=== PATIENT | male | born 1960 | race Caucasian/White ===

== ENCOUNTER 2019-12-17 05:52 | Day surgery (SDC) | payer OTHER, SELFPAY ==
[~2019-12-17] VITALS: Ht 167.6 cm; Wt 88.5 kg
[2019-12-17] MEDS ORDERED: ceFAZolin 1,000 MG VIAL ONE (07:44)
[2019-12-17] MEDS ORDERED: BUPIVACAINE-MPF/EPI 0.25% 30 ML VIAL INJ ONE (07:45)
[2019-12-17] MEDS ORDERED: BLOOD GLUCOSE MONITORING 1 DEV DEV FS SCH (07:55)
[2019-12-17] MEDS ORDERED: ONDANSETRON 4 MG/2 ML VIAL IVP PRN (07:55)
[2019-12-17] MEDS ORDERED: LACTATED RINGERS 1,000 ML IV SCH (07:55)
[2019-12-17] MEDS ORDERED: HYDROmorphone 1 MG/ML AMP IVP PRN ×2 (07:55→09:05)
[2019-12-17] MEDS ORDERED: SUCCINYLCHOLINE CHLORIDE 200 MG/10 ML VIAL IVP ONE (08:03)
[2019-12-17] MEDS ORDERED: PROPOFOL 200 MG/20 ML VIAL IV ONE (08:03)
[2019-12-17] MEDS ORDERED: ROCURONIUM 50 MG/5 ML VIAL IV ONE (08:03)
[2019-12-17] MEDS ORDERED: GLYCOPYRROLATE 0.2 MG/ML VIAL ONE (08:03)
[2019-12-17] MEDS ORDERED: NEOSTIGMINE 1:1000 10 MG/10 ML VIAL ONE (08:03)
[2019-12-17] MEDS ORDERED: DESFLURANE 240 ML BTL INH ONE (08:03)
[2019-12-17] MEDS ORDERED: ACETAMINOPHEN 325 MG TAB PO PRN (09:05)
[2019-12-17] MEDS ORDERED: ONDANSETRON 4 MG/2 ML VIAL IV PRN (09:05)
[2019-12-17] MEDS ORDERED: MORPHINE SULFATE 4 MG/ML SYR IV PRN (09:05)
[2019-12-17] MEDS ORDERED: MORPHINE SULFATE 2 MG/ML SYR IVP PRN (09:05)
[2019-12-17] MEDS ORDERED: HYDROcodone/APAP 5/325 MG 1 TAB TAB PO PRN (09:05)
[2019-12-17] MEDS: HYDROmorphone PFS 2 MG/ML SYR ONE ×2 (09:30→09:45)
[2019-12-17] MEDS ORDERED: INSULIN LISPRO SLIDING SCALE 100 UNITS/ML VIAL SUBQ PRN (09:40)
== END 2019-12-17 12:00 | disposition home or self-care (01) ==
LOC: MDS 05:52 → MMU 05:58 → MDS 12:00
PROVIDERS: ATTEND Surgery
DX: K42.9 Umbilical hernia without obstruction or gangrene (principal); E10.9 Type 1 diabetes mellitus without complications; Z79.4 Long term (current) use of insulin; Z98.890 Other specified postprocedural states; F17.200 Nicotine dependence, unspecified, uncomplicated
CPT/HCPCS: 36415; 49585; 71045; C1781; J0690; J1170; J3490; J7030; J7060; Q0092; J0330; J2704; J2710

== ENCOUNTER 2020-06-14 11:15 | Emergency (ER) | payer OTHER, SELFPAY ==
[~2020-06-14] VITALS: Ht 172.7 cm; Wt 86.6 kg
[2020-06-14 11:29] VITALS: BP 111/78
--- NOTE | 2020-06-14 12:22 | NUR ---
BLOOD SUGAR 284 AT THIS TIME.
--- NOTE | 2020-06-14 12:28 | NUR ---
Patient ambulated to bed 12. RN evaluating patient at bedside.
--- NOTE | 2020-06-14 12:46 | NUR ---
PT WAS REFERRED TO ED BY HIS PCP FOR I&D OF ABSCESS ON LEFT MID BACK. PT STATES IT HAS BEEN THERE FOR 1 WEEK. PMH: DANG
[2020-06-14] MEDS ORDERED: LIDOCAINE MPF 1% 5 ML ONE (12:49)
[2020-06-14] MEDS ORDERED: LIDOCAINE MPF 1% 10 MG/ML VIAL INJ ONE ×2 (12:50→13:25)
[2020-06-14 13:57] VITALS: BP 111/78
== END 2020-06-14 13:57 | disposition home or self-care (01) ==
LOC: MED 11:15
DX: L02.212 Cutaneous abscess of back [any part, except buttock and flank] (principal); L03.312 Cellulitis of back [any part except buttock and flank]; L72.9 Follicular cyst of the skin and subcutaneous tissue, unspecified; E11.9 Type 2 diabetes mellitus without complications; F17.200 Nicotine dependence, unspecified, uncomplicated; Z98.890 Other specified postprocedural states
CPT/HCPCS: 10060; 99282; J2001

== ENCOUNTER 2021-03-24 11:51 | Day surgery (SDC) | payer OTHER ==
[~2021-03-24] VITALS: Ht 170.2 cm; Wt 89.4 kg
[2021-03-24] MEDS ORDERED: diphenhydrAMINE 50 MG/ML VIAL ONE (12:56)
[2021-03-24] MEDS ORDERED: MIDAZOLAM 5 MG/5 ML VIAL ONE (12:56)
[2021-03-24] MEDS ORDERED: fentaNYL citrate 0.05 MG/ML VIAL ONE (12:56)
[2021-03-24] MEDS ORDERED: fentaNYL citrate 0.05 MG/ML VIAL IVP ONE (13:30)
[2021-03-24] MEDS ORDERED: MIDAZOLAM 2 MG/2 ML VIAL IVP ONE (13:30)
== END 2021-03-24 14:40 | disposition home or self-care (01) ==
LOC: MDS 11:51 → MMU 11:51 → MDS 14:40
PROVIDERS: ATTEND Internal Medicine Gastroenterology
DX: R11.0 Nausea (principal); E11.9 Type 2 diabetes mellitus without complications; Z79.84 Long term (current) use of oral hypoglycemic drugs; Z79.899 Other long term (current) drug therapy
CPT/HCPCS: 43239; J2250; J3010; 88305; 88312; 88313; 88342; J1200